=== PATIENT | female | born 1980 | race Caucasian/White ===

== ENCOUNTER 2017-03-01 12:42 | Emergency (ER) | payer MEDICAID ==
--- NOTE | ~2017-03-01 | ER ---
PATIENT'S NAME: [facility] AGE: 36 Y [address] ROOM: [place] [id number] LOCATION: [facility] ADMIT DATE: 03/01/2017 ER/Outpatient Report DISCHARGE DATE: 03/01/2017 FAMILY PHYSICIAN: Kenisha Vigil APRN ATTENDING PHYSICIAN: Herson Urena Seen at 1500 hours. HISTORY OF PRESENT ILLNESS: The patient 36-year-old female, said she was seen at [facility] 4 days ago, was diagnosed with a sinus infection, was put on Augmentin and was given an injection of Rocephin, also oral prednisone. She states today she still is having a lot of nasal congestion, some fullness in her right ear. No significant fever. The patient has missed work since the middle of last week, does request another work note. ALLERGIES: NO MEDICINAL ALLERGIES. CURRENT MEDICATIONS: Include prednisone and Augmentin. PAST MEDICAL HISTORY: No chronic diseases. SURGERIES: None. SOCIAL HISTORY: Works at [employer]. No recent tobacco use. REVIEW OF SYSTEMS: GENERAL: There is some general lethargy, some chills. HEAD AND EENT: Continues to have nasal congestion. Fullness in her right ear. Denies sore throat. RESPIRATORY: Occasional cough, but no shortness of breath. SKIN: No recent rash. OBJECTIVE: VITAL SIGNS: Her blood pressure was 123/82, her temperature was 97.6, her respiratory rate 20, pulse 110, her O2 sats were 95% on room air. GENERAL APPEARANCE: Well nourished, no obvious distress. HEENT: Ears: TMs especially on the right was slightly pink but not significantly inflamed. Her nasal passages were congested, that is mainly a clear rhinorrhea. Throat was clear. No redness. PATIENT'S NAME: [facility]NA [facility] AGE: 36 Y [address] ROOM: [place] [id number] LOCATION: [facility] ADMIT DATE: 03/01/2017 ER/Outpatient Report DISCHARGE DATE: 03/01/2017 FAMILY PHYSICIAN: Kenisha Vigil APRN ATTENDING PHYSICIAN: Herson Urena NECK: Supple. No adenopathy. LUNGS: Sounded clear. ASSESSMENT: Upper respiratory infection. PLAN: Advised to continue her home medications. Tylenol for general discomfort, saline nasal spray or Sudafed [id number]. Follow up with primary care, if concerns. MAKAYLA COURTNEY FOR DO GADIEL ARREAGA/modl /[id number] d: 03/01/17 1823 t: 03/04/17 1201, OUTPATIENT REPORT
== END 2017-03-01 13:10 | disposition disaster alternative care site (69) ==
LOC: GMED 12:42
DX: J06.9 Acute upper respiratory infection, unspecified (principal); Z79.899 Other long term (current) drug therapy